=== PATIENT | female | born 1960 | race Caucasian/White ===

== ENCOUNTER 2023-06-07 06:18 | Day surgery (SDC) | payer OTHER ==
[~2023-06-07] VITALS: Ht 162.6 cm; Wt 104.3 kg
[~2023-06-07 06:18] MED LIST: ASPI-1393 PO; CLOP75TA32 PO; LOVA10TA55 PO
[2023-06-07] MEDS ORDERED: MIDAZOLAM HCL 5 MG/5 ML VIAL ONE ×2 (06:41→09:02)
[2023-06-07] MEDS ORDERED: MEPERIDINE 100 MG INJ. 100 MG/ML VIAL ONE (06:41)
[2023-06-07] MEDS ORDERED: fentaNYL CITRATE/PF 100 MCG/2 ML AMP ONE (08:50)
[2023-06-07] MEDS ORDERED: DIPHENHYDRAMINE INJ 50 MG/ML VIAL ONE (09:02)
[2023-06-07 12:39] VITALS: O2SAT 97
[2023-06-07 13:47] VITALS: BP_SYST 137; PULSE 64; RESP 20
== END 2023-06-07 09:58 | disposition home or self-care (01) ==
LOC: SDS 06:18 → SMU 06:19 → SDS 09:58
PROVIDERS: ATTEND Internal Medicine Gastroenterology
DX: R19.5 Other fecal abnormalities (principal); K62.1 Rectal polyp; K57.30 Diverticulosis of large intestine without perforation or abscess without bleeding; K64.8 Other hemorrhoids; E78.5 Hyperlipidemia, unspecified; I25.2 Old myocardial infarction; G47.30 Sleep apnea, unspecified; Z87.891 Personal history of nicotine dependence; Z79.899 Other long term (current) drug therapy
CPT/HCPCS: 99152; 45380; 88305; G0378; J1200; J2250; J3010; J2175